=== PATIENT | female | born 1970 | race Caucasian/White ===

== ENCOUNTER 2019-05-15 13:12 | Emergency (ER) | payer MEDICAID, OTHER ==
[2019-05-15] MEDS ORDERED: CHERRY SYRUP 10 ML UDC PO ONE (16:27)
[2019-05-15] MEDS ORDERED: DEXAMETHASONE 10 MG/ML VIAL PO STA (16:27)
[2019-05-15] MEDS ORDERED: IPRATROPIUM/ALBUTEROL 3 ML NEB INH STA (16:27)
--- NOTE | 2019-05-15 16:31 | ED Physician Documentation ---
PD HPI DYSPNEA - Stated complaint Stated Complaint: SOA - Chief complaint Chief Complaint: Neuro - History obtained from History obtained from: Patient - History of Present Illness Timing - onset: How many days ago (4) Timing - onset during: Rest Timing - duration: Days (4) Timing - details: Gradual onset, Still present Inciting event(s): URI Improved by: Inhaler/neb, Sitting up Worsened by: Exertion, Laying flat, Coughing Associated symptoms: Cough, Wheezing Similar symptoms before: Diagnosis (asthma and pneumonia) Recently seen: Not recently seen - Additional information Additional information: 48-year-old female history of asthma has been having to use her inhaler every 4 hours for the past 2 days. She states that she is developed a cough and congestion about 4 days ago she has been having some trouble sleeping at night as she is having to sleep sitting upright or she will have coughing paroxysms. She denies any fever associated with this she has had some clear phlegm brought up. She has had similar symptoms previously was with pneumonia. Review of Systems Constitutional: denies: Fever Eyes: denies: Decreased vision Ears: denies: Ear pain Nose: reports: Rhinorrhea / runny nose, Congestion Throat: denies: Sore throat Cardiac: denies: Chest pain / pressure, Palpitations, Calf pain Respiratory: reports: Dyspnea, Cough, Wheezing. denies: Hemoptysis GI: denies: Abdominal Pain, Nausea, Vomiting : denies: Dysuria PD PAST MEDICAL HISTORY - Past Medical History Cardiovascular: Hypertension Respiratory: Asthma - Past Surgical History Past Surgical History: Yes Ortho: Rotator cuff repair HEENT: Tonsil/Adenoidectomy - Present Medications Home Medications: Ambulatory Orders Medication Instructions Recorded Confirmed amLODIPine [Norvasc] 5 mg PO DAILY 08/22/14 08/22/14 hydroCHLOROthiazide 25 mg PO DAILY 08/22/14 08/22/14 [Hydrochlorothiazide] Albuterol 2.5 mg INH Q4H PRN #30 neb 05/15/19 Amox/Clav 875/125 [Augmentin] 1 each PO Q12H #20 tablet 05/15/19 amLODIPine [Norvasc] 5 mg PO DAILY #30 tablet 05/15/19 predniSONE [Deltasone] 10 mg PO ONCE #26 tablet 05/15/19 - Allergies Allergies/Adverse Reactions: Allergies Allergy/AdvReac Type Severity Reaction Status Date / Time ciprofloxacin [From Cipro] Allergy Dizziness Verified 05/15/19 13:14 ciprofloxacin HCl * Allergy Dizziness Verified 05/15/19 13:14 [From Cipro] - Social History Does the pt smoke?: No Smoking Status: Never smoker Does the pt drink ETOH?: Yes Does the pt have substance abuse?: No - Immunizations Immunizations are current?: Yes PD ED PE NORMAL - Vitals Vital signs reviewed: Yes (Tachycardic and hypertensive) - General General: Alert and oriented X 3, No acute distress, Well developed/nourished - HEENT HEENT: EOMI, Ears normal, Moist mucous membranes, Pharynx benign, Dentition benign - Neck Neck: Supple, no meningeal sign, No bony TTP - Cardiac Cardiac: No murmur, Other (Tachycardic) - Respiratory Respiratory: No respiratory distress, Other (Diminished breath sounds bilaterally without focal rhonchi) - Abdomen Abdomen: Soft, Non tender - Back Back: No CVA TTP, No spinal TTP - Derm Derm: Normal color, Warm and dry, No rash - Extremities Extremities: No deformity, No edema, No calf tenderness / cord - Neuro Neuro: Alert and oriented X 3, head host/hostess 2-12 intact, No motor deficit, No sensory deficit, Normal speech Eye Opening: Spontaneous Motor: Obeys Commands Verbal: Oriented GCS Score: 15 - Psych Psych: Normal mood, Normal affect Results - Vitals Vitals: Vital Signs - 24 hr 05/15/19 05/15/19 13:14 16:40 Temperature 36.5 C Heart Rate 120 H 78 Respiratory 16 18 Rate Blood Pressure 138/95 H O2 Saturation 100 Oxygen O2 Source Room air - Rads (name of study) chest Radiology: Prelim report reviewed (Pression: Bibasilar airspace disease with small bilateral pleural effusions.), EMP read indepedently, See rad report PD MEDICAL DECISION MAKING - ED course Complexity details: reviewed old records, reviewed results, re-evaluated patient, considered differential, d/w patient ED course: 48-year-old female history of hypertension and asthma has developed a cough and congestion with increasing difficulty breathing and she has had pneumonia previously with similar symptoms. Today she does look like she has an infiltrate on her chest x-ray especially in the right lower lobe. She is admin istered a DuoNeb treatment with improvement in her breathing she is administered dexamethasone 10 mg orally and a gram of Rocephin IM. We will placed on to some Augmentin and she is asked for refill of her amlodipine for her hypertension. She does look like she has significant cardiomegaly on her chest x-ray. She is given a prescription for albuterol for her nebulizer machine. Departure - Departure Disposition: Home, Self Care Clinical Impression: Pneumonia Qualifiers: Pneumonia type: due to unspecified organism Laterality: right Lung location: lower lobe of lung Qualified Code(s): J18.9 - Pneumonia, unspecified organism Exacerbation of asthma Qualifiers: Asthma severity: mild Asthma persistence: intermittent Qualified Code(s): J45.21 - Mild intermittent asthma with (acute) exacerbation Condition: Stable Instructions: ED Reactive Airway Disease, ED Pneumonia Adult Follow-Up: [facility] [place] [Provider Group] Prescriptions: Albuterol 2.5 mg INH Q4H PRN #30 neb PRN Reason: Wheezing amLODIPine [Norvasc] 5 mg PO DAILY #30 tablet Amox/Clav 875/125 [Augmentin] 1 each PO Q12H #20 tablet predniSONE [Deltasone] 10 mg PO ONCE #26 tablet Forms: Activity restrictions
[2019-05-15] MEDS ORDERED: cefTRIAXone 1 GM VIAL IM STA (16:48)
[2019-05-15] MEDS ORDERED: LIDOCAINE 1% 2 ML VIAL MC ONE (16:48)
--- NOTE | 2019-05-15 16:55 | XRAY Report ---
Reason: cough soa Procedure Date: 05/15/2019 Accession Number: [id number] / [id number] Procedure: XR - Chest 2 View X-Ray CPT Code: 08950 Final Report FULL RESULT: EXAM: CHEST RADIOGRAPHY EXAM DATE: 05/15/2019 04:40 PM. CLINICAL HISTORY: Cough soa. COMPARISON: None. TECHNIQUE: 2 views. FINDINGS: Lungs/Pleura: Bibasilar opacities with small bilateral pleural effusions. Mediastinum: Heart is enlarged. Pulmonary vasculature is within normal limits. Other: None. IMPRESSION: Bibasilar airspace disease with small bilateral pleural effusions. RADIA
[2019-05-15 17:31] VITALS: BP 138/105
== END 2019-05-15 17:31 | disposition home or self-care (01) ==
LOC: ED 13:12
DX: J18.9 Pneumonia, unspecified organism (principal); J45.21 Mild intermittent asthma with (acute) exacerbation; I11.9 Hypertensive heart disease without heart failure; Z79.899 Other long term (current) drug therapy
CPT/HCPCS: 71046; 94640; 96372; 99284; A9270

== ENCOUNTER 2019-05-22 16:26 | Observation (INO) | payer OTHER ==
--- NOTE | 2019-05-22 17:47 | XRAY Report ---
Reason: PNA, no improvement on antibiotics Procedure Date: 05/22/2019 Accession Number: [id number] / [id number] Procedure: XR - Chest 2 View X-Ray CPT Code: 48776 Final Report FULL RESULT: EXAM: CHEST RADIOGRAPHY EXAM DATE: 05/22/2019 05:16 PM. CLINICAL HISTORY: PNA, no improvement on antibiotics. COMPARISON: CHEST 2 VIEW 05/15/2019 4:32 PM. TECHNIQUE: 2 views. FINDINGS: Lungs/Pleura: Stable mild pulmonary edema and small bilateral pleural effusions. No focal opacities evident. NO pneumothorax. Normal volumes. Mediastinum: There is stable moderate enlargement of cardiomediastinal silhouette. Mild continued pulmonary edema with small bilateral pleural effusions. Other: None. IMPRESSION: stable moderate enlargement of cardiomediastinal silhouette. Mild continued pulmonary edema with small bilateral pleural effusions. RADIA
[2019-05-22 17:48] LABS: BASOPHILS # (AUTO) 0.1 10^3/uL (0.0-0.1); BASOPHILS % (AUTO) 0.4 %; EOSINOPHILS # (AUTO) 0.1 10^3/uL (0.0-0.7); EOSINOPHILS % (AUTO) 0.5 %; HGB - HEMOGLOBIN 13.9 g/dL (12.0-16.0); LYMPHOCYTES # (AUTO) 1.3 10^3/uL (1.5-3.5); LYMPHOCYTES % (AUTO) 10.3 %; MEAN CORPUSCULAR HEMOGLOBIN 32.6 pg (27.0-31.0); MEAN CORPUSCULAR HGB CONC 33.4 g/dL (32.0-36.0); MEAN CORPUSCULAR VOLUME 97.7 fL (81.0-99.0); MEAN PLATELET VOLUME 10.2 fL (7.9-10.8); MONOCYTES # (AUTO) 0.7 10^3/uL (0.0-1.0); MONOCYTES % (AUTO) 5.6 %; NEUTROPHILS # (AUTO) 10.7 10^3/uL (1.5-6.6); NEUTROPHILS % (AUTO) 82.5 %; PLT - PLATELET COUNT 300 10^3/uL (130-450); RED BLOOD COUNT 4.26 10^6/uL (4.20-5.40); RED CELL DISTRIBUTION WIDTH 12.8 % (12.0-15.0); WHITE BLOOD COUNT 12.9 x10^3/uL (4.8-10.8)
[2019-05-22 18:01] LABS: ALBUMIN 3.9 g/dL (3.2-5.5); ALBUMIN/GLOBULIN RATIO 1.9 (1.0-2.2); BILIRUBIN,TOTAL 0.7 mg/dL (0.2-1.0); CALCIUM 8.7 mg/dL (8.5-10.3); CREATININE 0.7 mg/dL (0.4-1.0)
--- NOTE | 2019-05-22 19:14 | ED Physician Documentation ---
History of Present Illness - Stated complaint Stated Complaint: HIGH BP, RAPID BREATHING - DX PN 05/15 - Chief complaint Chief Complaint: Resp - History obtained from History obtained from: Patient - History of Present Illness Timing: How many weeks ago (2) - Additonal information Additional information: 48 year old female with hx of hypertension (not on medication), asthma presents to the emergency department because of ongoing shortness of breath, cough since 05/04/2019. Patient was seen in the ED last wednesday and was diagnosed with pneumonia. She was treated with prednisone and amoxicillin without improvement. CXR at the time showed bibasilar atelectasis with small pleural effusions. She reported of exertional dyspnea, orthopnea santana chest pain with coughing. Patient denies fever or chills. She reports of night sweats/ hot flashes from menopause. Cough was mostly nonproductive. Review of Systems Constitutional: reports: Sweats. denies: Fever Eyes: denies: Loss of vision, Decreased vision Ears: denies: Loss of hearing, Ear pain Nose: denies: Rhinorrhea / runny nose, Foreign Body Cardiac: reports: Palpitations Respiratory: reports: Cough GI: denies: Abdominal Pain, Abdominal Swelling, Nausea, Vomiting Skin: denies: Rash Musculoskeletal: denies: Neck pain, Back pain, Extremity pain Neurologic: denies: Generalized weakness, Focal weakness, Syncope PD PAST MEDICAL HISTORY - Past Medical History Cardiovascular: Hypertension Respiratory: Asthma GI: None HEENT: None Psych: None Musculoskeletal: None Derm: None - Past Surgical History Past Surgical History: Yes Ortho: Rotator cuff repair HEENT: Tonsil/Adenoidectomy - Present Medications Home Medications: Ambulatory Orders Medication Instructions Recorded Confirmed amLODIPine [Norvasc] 5 mg PO DAILY 08/22/14 08/22/14 hydroCHLOROthiazide 25 mg PO DAILY 08/22/14 08/22/14 [Hydrochlorothiazide] Albuterol 2.5 mg INH Q4H PRN #30 neb 05/15/19 Amox/Clav 875/125 [Augmentin] 1 each PO Q12H #20 tablet 05/15/19 amLODIPine [Norvasc] 5 mg PO DAILY #30 tablet 05/15/19 predniSONE [Deltasone] 10 mg PO ONCE #26 tablet 05/15/19 - Allergies Allergies/Adverse Reactions: Allergies Allergy/AdvReac Type Severity Reaction Status Date / Time ciprofloxacin [From Cipro] Allergy Dizziness Verified 05/15/19 13:14 ciprofloxacin HCl * Allergy Dizziness Verified 05/15/19 13:14 [From Cipro] peanut Allergy Anaphylaxis Verified 05/23/19 01:31 - Social History Does the pt smoke?: No Smoking Status: Never smoker Does the pt drink ETOH?: Yes Does the pt have substance abuse?: No - Immunizations Immunizations are current?: Yes PD ED PE NORMAL - General General: Alert and oriented X 3 - HEENT HEENT: Atraumatic - Neck Neck: Supple, no meningeal sign - Cardiac Cardiac: Other (tahcyardiac) - Respiratory Respiratory: Other (rhonchi at the bases) - Abdomen Abdomen: Normal bowel sounds - Back Back: No CVA TTP - Extremities Extremities: No deformity - Neuro Neuro: Alert and oriented X 3, glove cuffer 2-12 intact, No motor deficit, No sensory deficit, Normal speech Results - Vitals Vitals: Vital Signs - 24 hr 05/22/19 05/22/19 16:55 21:21 Temperature 37 C Heart Rate 127 H 110 H Respiratory 18 18 Rate Blood Pressure 137/114 H 132/94 H O2 Saturation 97 98 Oxygen O2 Source Room air - EKG (time done) 1914 Rhythm: Sinus tachycardia (119) [place]: Normal QRS: Normal Ischemia: Non specific changes Compare to prior EKG: Old EKG unavailable, Other (LVH noted.) - Labs Labs: Laboratory Tests 05/22/19 05/22/19 05/22/19 17:45 17:45 19:06 WBC 12.9 H RBC 4.26 Hgb 13.9 Hct 41.6 MCV 97.7 MCH 32.6 H MCHC 33.4 RDW 12.8 Plt Count 300 MPV 10.2 Neut # (Auto) 10.7 H Lymph # (Auto) 1.3 L [place] # (Auto) 0.7 Eos # (Auto) 0.1 Baso # (Auto) 0.1 Absolute Nucleated RBC 0.00 Nucleated RBC % 0.0 Sodium 132 L Potassium 3.5 Chloride 99 L Carbon Dioxide 23 Anion Gap 10.0 BUN 8 Creatinine 0.7 Estimated GFR (MDRD) 89 Glucose 121 H Calcium 8.7 Total Bilirubin 0.7 AST 36 ALT 49 Alkaline Phosphatase 34 L Troponin I High Sens 50.3 H* B-Natriuretic Peptide Total Protein 6.0 L Albumin 3.9 Globulin 2.1 Albumin/Globulin Ratio 1.9 Lipase 28 HCG, Quant 05/22/19 05/22/19 19:06 19:06 WBC RBC Hgb Hct MCV MCH MCHC RDW Plt Count MPV Neut # (Auto) Lymph # (Auto) [place] # (Auto) Eos # (Auto) Baso # (Auto) Absolute Nucleated RBC Nucleated RBC % Sodium Potassium Chloride Carbon Dioxide Anion Gap BUN Creatinine Estimated GFR (MDRD) Glucose Calcium Total Bilirubin AST ALT Alkaline Phosphatase Troponin I High Sens B-Natriuretic Peptide 1427 H Total Protein Albumin Globulin Albumin/Globulin Ratio Lipase HCG, Quant 4.22 PD MEDICAL DECISION MAKING - ED course Complexity details: d/w patient, d/w decorating consultant ED course: 48 YEAR OLD FEMALE PRESENTS TO THE EMERGENCY DEPARTMENT BECAUSE OF 2 1/2 WEEKS OF NONPRODUCTIVE COUGH, SHORTNESS OF BREATH, EXERTIONAL DYSPNEA AND ORTHOPNEA. PATIENT WAS NOTED TO BE TACHYCARDIAC AND WORK UP WAS CONSISTENT WITH ACUTE CONGESTIVE HEART FAILURE. PATIENT WAS NOT HYPOXEMIC AT THIS TIME. SHE WAS MILDLY TACHYPNEIC. [address] HERNANDEZ, HOSPITALIST WHO RECOMMENDED TO GIVE IV LASIX IN THE EMERGENCY DEPARTMENT AND RECHECK. PATIENT WILL BE GIVEN GIVEN 40 MG IV LASIX AND I WILL RECHECK ON THE PATIENT. AFTER IV LASIX, PATIENT HAD GOOD URINE OUTPUT BUT SHE REMAINED TACHYCARDIAC ON AMBULATION AND WITH DIZZINESS WELL. CT CHEST DID NOT SHOW PULMONARY EMBOLISM. THERE WAS BILATERAL PLEURAL EFFUSION, RIGHT GREATER THAN LEFT. CASE WAS DISCUSSED WITH DR. HERNANDEZ AGAIN AND SHE HAS ACCEPTED THE PATIENT FOR OBSERVATION ADMISSION. Departure - Departure Disposition: ED Place in Observation Clinical Impression: New onset of congestive heart failure Condition: Serious Discharge Date/Time: 05/22/19 23:47
[2019-05-22] MEDS ORDERED: FUROSEMIDE 40 MG/4 ML VIAL IVP STA (19:54)
[2019-05-22] MEDS ORDERED: IOVERSOL 320 100 ML VIAL IVP ONE ×2 (21:34→22:08)
[2019-05-22] MEDS ORDERED: IBUPROFEN 600 MG TABLET PO STA (21:57)
--- NOTE | 2019-05-22 22:50 | CT Report ---
Reason: shortness of breath, tachycardia Procedure Date: 05/22/2019 Accession Number: [id number] / [id number] Procedure: CT - ANGIO CHEST W/WO CPT Code: Final Report FULL RESULT: EXAM: CT ANGIOGRAM CHEST EXAM DATE: 05/22/2019 10:12 PM. CLINICAL HISTORY: Shortness of breath, tachycardia. COMPARISON: None. TECHNIQUE: Routine helical imaging was performed through the chest in the pulmonary arterial phase. IV Contrast: OPTIRAY 320. Reconstructions: Coronal 3-D MIP reconstructions. Sagittal and coronal. In accordance with CT protocol optimization, one or more of the following dose reduction techniques were utilized for this exam: automated exposure control, adjustment of mA and/or KV based on patient size, or use of iterative reconstructive technique. FINDINGS: Pulmonary Arteries: Diagnostic quality: Adequate through the segmental arteries. No evidence for acute or chronic pulmonary emboli. RV/LV is within normal limits. There is no interventricular septal bowing. There is no reflux of contrast material in the IVC. Lungs/Pleura: There are no pneumonic infiltrates. There is an area of atelectasis at the right lung base and an area of atelectasis at the left lung base partially contiguous with the heart. There is a moderate to large right pleural effusion and a small left pleural effusion. Mediastinum: The heart is globally enlarged. Thoracic Aorta: Unremarkable. Upper Abdomen: Unremarkable. Other: None. IMPRESSION: 1. No evidence for pulmonary emboli. 2. Cardiomegaly. 3. Bilateral pleural effusions right greater than left. 4. Atelectatic changes at the lung bases. RADIA
[2019-05-22] MEDS ORDERED: ACETAMINOPHEN 325 MG TABLET PO PRN (23:19)
[2019-05-22] MEDS ORDERED: oxyCODONE 5 MG TABLET PO PRN (23:19)
[2019-05-22] MEDS ORDERED: PROCHLORPERAZINE 10 MG/2 ML VIAL IVP PRN (23:19)
[2019-05-22] MEDS ORDERED: ONDANSETRON ODT 4 MG TABLET TL PRN (23:19)
[2019-05-22] MEDS ORDERED: SODIUM CHLORIDE FLUSH 0.9% 10 ML SYRINGE IVP PRN (23:19)
[2019-05-22] MEDS ORDERED: ONDANSETRON 4 MG/2 ML VIAL IVP PRN (23:19)
--- NOTE | 2019-05-22 23:40 | HISTORY & PHYSICAL EXAMINATION ---
Chief Complaint - Chief Complaint Chief Complaint: cough and sob History of Present Illness - Admitted From Admitted From:: Home/ER - History Obtained From Records Reviewed: [address] History obtained from: patient and Dr. Murray Exam Limitations: none - History of Present Illness HPI Comment/Other: This is a 48-year-old female who has a history of hypertension and asthma that was recently seen May 15 for what was thought to be asthma exacerbation. Sometime in March of this year she started feeling like there was a "hitch" in her chest. At rest, while doing minimal sedentary activity, she would have sudden shortness of breath that would be fleeting and last for moment. It would cause her to cough and then would go away. She denied chest pain with this, fever, chills. Sweats. She is gradually increased her weight over the last couple of years and that she stopped going to a gym, and was drinking up to 4 glasses of wine a night after divorce from her . She is felt exhausted, and way less able to have energy since March. She then started having shortness of breath approximately May 11 and was gradual in onset, and accompanied by orthopnea and wheezing. She felt like her chest was congested but had no antecedent fever. She did have a runny nose and some congestion.She has a history of asthma. On a bad week she will use her inhaler at night maybe 3 times a week. And that is only during allergy season. When it is not allergy season, she can go months without using her inhaler. On examination she had a negative lung exam. Afebrile. Tachycardic to 120. O2 sat 100%. She looks like she had an infiltrate on right lower lobe on chest x-ray. Was treated with dexamethasone and Rocephin. She also had significant cardiomegaly on her chest x-ray. She was given a prescription for albuterol, amlodipine, Augmentin and prednisone. She returned to the emergency room tonight because she was still short of breath, and still coughing. She continues to have shortness of breath anytime she tries to do anything simple such as getting up to go to the bathroom or walk across her living room. She cannot lay flat because she is short of breath. And the cough is so spasmatic start a rib cage to hurt. She does not have any fever, chills, sore throat, abdominal pain. She has no jaw pain. Left arm pain. She feels like her heart is pounding very hard with this. Temperature is 37, heart rate is 127, respirations 18 and unlabored, blood pressure 137/114 and she is 97% on room air. She has rhonchi in her bases, continues to be tachycardic. No edema. White cell count is 12.9. Troponin is 50.3. BNP is 1427. Her chest x-ray has stable moderate enlargement of cardiomediastinal silhouette. Some pulmonary edema with small bilateral pleural effusion. CT pulmonary angiogram was done to make sure there is no PE and she has no pneumonic infiltrates. Atelectasis right lung base and area of atelectasis in the left lung base. Moderate to large right pleural effusion and a small left pleural effusion. The heart is globally enlarged. She received Lasix 40 mg IV push in the emergency room. It did help somewhat with her shortness of breath but she continues to be tachycardic. She is now placed in observation for continued diuresis. An echocardiogram in the morning. She will have another set of cardiac enzymes because they are elevated. History - Past Medical History Cardiovascular: reports: Hypertension (Long-term history of high blood pressure. 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 She has high blood pressure, asthma, and was recently diagnosed with congestive heart failure. Dad at age 58 of heart attack, he also hypertension. One sibling is healthy. 2 children are completely healthy Living arrangement: At home Living Situation: Alone Social History Notes: She tried smoking for about a week her first year in college. It did not take. She has not smoked cannabis, or snorted cocaine/methamphetamines. No history of recreational substance abuse. She is drinking 4 glasses of wine a day and stopped doing that in March. She has no history of alcohol withdrawal. 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 She is . Lives in her own home. - Substance History Abuse: Recurrent use of substance despite neg consequences: Alcohol - POLST Patient has POLST: Yes POLST Status: Full Code Meds/Allgy - Home Medications Home Medications: Ambulatory Orders Medication Instructions Recorded Confirmed amLODIPine [Norvasc] 5 mg PO DAILY 08/22/14 08/22/14 hydroCHLOROthiazide 25 mg PO DAILY 08/22/14 08/22/14 [Hydrochlorothiazide] Albuterol 2.5 mg INH Q4H PRN #30 neb 05/15/19 Amox/Clav 875/125 [Augmentin] 1 each PO Q12H #20 tablet 05/15/19 amLODIPine [Norvasc] 5 mg PO DAILY #30 tablet 05/15/19 predniSONE [Deltasone] 10 mg PO ONCE #26 tablet 05/15/19 - Allergies Allergies/Adverse Reactions: Allergies Allergy/AdvReac Type Severity Reaction Status Date / Time ciprofloxacin [From Cipro] Allergy Dizziness Verified 05/15/19 13:14 ciprofloxacin HCl * Allergy Dizziness Verified 05/15/19 13:14 [From Cipro] Review of Systems - Constitutional Constitutional: reports: Fatigue, Night sweats (In association with menopause). denies: Fever, Chills, Malaise, Poor appetite, Diaphoresis - Eyes Eyes: reports: Corrective lenses. denies: Pain, Irritation, Amaurosis, Blurred vision - Ears, Nose & Throat Ears, Nose & Throat: denies: Ear pain, Hearing loss, Hearing aids, Sore throat, Hoarseness - Cardiovascular Cariovascular: reports: Irregular heart rate, Palpitations, Exertional dyspnea, Decr. exercise tolerance - Respiratory Respiratory: reports: Cough, Wheezing, SOB at rest, SOB with exertion - Gastrointestinal Gastrointestinal: denies: Abdominal pain, Abdominal distention, Constipation, Diarrhea, Change in bowel habits - Genitourinary Genitourinary: denies: Dysuria, Frequency, Urgency, Hematuria, Incontinence - Musculoskeletal Musculoskeletal: denies: Muscle pain, Back pain, Muscle aches, Stiffness, Gout, Joint pain - Integumentary Integumentary: denies: Rash, Pruritis, Lesions, Dryness - Neurological Neurological: denies: General weakness, Focal weakness, Headache, Dizziness, Numbness, Memory problems, Pre-existing deficit, Abnormal gait - Psychiatric Psychiatric: denies: Depression, Anxiety, Suicidal - Endocrine Endocrine: denies: Polyuria, Polydypsia, Polyphagia - Hematologic/Lymphatic Hematologic/Lymphatic: denies: Anemia, Bruising Prior Level of Functionality: Independent with regards to activities of daily living. She pays the bills, does her housework, drives a car, has a full-time job. Exam - Vital Signs Reviewed Vital Signs: Yes Vital Signs: Vital Signs x48h Temp Pulse Resp BP Pulse Ox 05/22/19 21:21 110 H 18 132/94 H 98 05/22/19 16:55 37 C 127 H 18 137/114 H 97 - Physical Exam General Appearance: positive: No acute distress, Alert, Other (Sitting upright, able to get out of wheelchair into bed without increased respiratory effort or severe tachypnea) Eyes Bilateral: positive: PERRL, EOMI ENT: positive: Pharynx nml, Other (Wearing eyeglasses.) Neck: positive: No JVD. negative: Stiff neck, Carotid bruit Respiratory: positive: Chest non-tender, Other (Dull right lung base with faint egophony at the bases). negative: Rales, Rhonchi Cardiovascular: positive: Regular rate & rhythm, Tachycardia. negative: Gallop/S4, Friction rub Abdomen: positive: Non-tender, No organomegaly, Nml bowel sounds, No distention Skin: positive: Warm, Dry Extremities: positive: Non-tender, No pedal edema Neurologic/Psychiatric: positive: Oriented x3, CN's nml (2-12), Motor nml Conclusion/Plan - Problem List (1) New onset of congestive heart failure Conclusion/Plan: This is in association with a viral illness. She may have a viral induced cardiomyopathy, or new ischemic cardiomyopathy but she does not have the risk factors for CAD. Troponin is elevated but this may be due to demand ischemia from tachycardia this been persistent for a week according to her vitals.She may also have hypertensive heart disease since her high blood pressure is untreated. The final cause on the differential for her CHF could be alcholic cardiomyopathy. She has not responded to diuresis in the emergency room, and she continues to have tachycardia. Plan: Observation stay Echocardiogram in the morning Start Coreg to help with the tachycardia Continue Lasix IV (2) Pleural effusion Conclusion/Plan: I would anticipate this is due to her congestive heart failure. However a diagnostic thoracentesis may be in order if she does not respond to diuretics. (3) Elevated troponin Conclusion/Plan: Repeated in 4 to 6 hours and tomorrow a.m. EKG without acute ischemic changes. Most likely due to demand ischemia from continued tachycardia. (4) Hypertension Conclusion/Plan: At this time amlodipine will be substituted by DELPHINE inhibitor. Qualifiers: Hypertension type: essential hypertension Qualified Code(s): I10 - Essential (primary) hypertension - Lab Results Lab results reviewed: Yes Fish Bones: 05/22/19 17:45 05/22/19 17:45 - Diagnostic Imaging Results Diagnostic Imaging Results: positive: Final report reviewed Core Measures - Anticipated LOS I expect patient to be DC'd or transferred within 96 hours.: Yes - DVT/VTE - Prophylaxis VTE/DVT Device ordered at admit?: Yes
[2019-05-23] MEDS: SODIUM CHLORIDE FLUSH 0.9% 10 ML SYRINGE IVP SCH ×3 (00:20→18:08)
[2019-05-23] MEDS: carvediloL 3.125 MG TABLET PO SCH ×3 (00:20→21:43)
[2019-05-23 05:00] LABS: CALCIUM 8.2 mg/dL (8.5-10.3); CREATININE 0.5 mg/dL (0.4-1.0); MAGNESIUM 1.9 mg/dL (1.7-2.8)
[2019-05-23] MEDS ORDERED: ATORVASTATIN 40 MG TABLET PO STA (05:21)
[2019-05-23] MEDS ORDERED: ENOXAPARIN 80 MG/0.8 ML SYRINGE SUBQ STA (05:24)
[2019-05-23] MEDS: FUROSEMIDE 40 MG/4 ML VIAL IVP SCH ×2 (06:13→14:51)
[2019-05-23] MEDS: ASPIRIN EC 325 MG TABLET PO SCH ×2 (06:14→08:16)
[2019-05-23] MEDS ORDERED: POTASSIUM CHLORIDE 20 MEQ TABLET PO ONE (09:00)
[2019-05-23] MEDS: ENALAPRIL 5 MG TABLET PO SCH (12:19)
--- NOTE | 2019-05-23 15:48 | Discharge Plan ---
Discharge Plan Problem Reviewed?: Yes Disposition: 02 Transfer Acute Care Hosp Condition: Serious Instruction Topics: Heart Failure, Heart Failure Warning Signs, Heart Failure Tracking Weight, Heart Failure Being Active, Heart Valves, Heart Failure Helpful Procedures, Heart Failure Coping, Heart Failure Diet Changes, Heart Failure Helpful Meds, Heart Failure Congestive Ch No Smoking: If you smoke, Please STOP! Call for help.
--- NOTE | 2019-05-23 15:48 | DISCHARGE SUMMARY ---
Discharge Summary Admit Date: 05/22/19 Discharge Date: 05/24/19 Discharging Provider: Dr Kate Newby Primary Care Provider: None Code Status: Attempt Resuscitation Condition at Discharge: Fair Discharge Disposition: Transfer Acute Care Hosp Discharge [facility] Name: [facility] - DIAGNOSES Admission Diagnoses: (1) New onset of congestive heart failure (2) Pleural effusion (3) Elevated troponin (4) Hypertension Discharge Diagnoses with Status of Each Condition: See below - HPI History of Present Illness: From the admission H&P of Dr. Neyda Baker: This is a 48-year-old female who has a history of hypertension and asthma that was recently seen May 15 for what was thought to be asthma exacerbation. Sometime in March of this year she started feeling like there was a "hitch" in her chest. At rest, while doing minimal sedentary activity, she would have sudden shortness of breath that would be fleeting and last for moment. It would cause her to cough and then would go away. She denied chest pain with this, fever, chills, or sweats. She is gradually increased her weight over the last couple of years and that she stopped going to a gym, and was drinking up to 4 glasses of wine a night after divorce from her . She has felt exhausted, and way less able to have energy since March. She then started having shortness of breath approximately May 11 and was gradual in onset, and accompanied by orthopnea and wheezing. She felt like her chest was congested but had no antecedent fever. She did have a runny nose and some congestion. She has a history of asthma. On a bad week she will use her inhaler at night maybe 3 times a week. And that is only during allergy season. When it is not allergy season, she can go months without using her inhaler. On examination she had a negative lung exam last week. Afebrile. Tachycardic to 120. O2 sat 100%. She looks like she had an infiltrate on right lower lobe on chest x-ray. Was treated with dexamethasone and Rocephin. She also had significant cardiomegaly on her chest x-ray. She was given a prescription for albuterol, amlodipine, Augmentin and prednisone, which she too and the [id number] caused worse leg swelling and abdominal distension. She returned to the emergency room tonight because she was still short of breath, and still coughing. She continues to have shortness of breath anytime she tries to do anything simple such as getting up to go to the bathroom or walk across her living room. She cannot lay flat because she is short of breath. And the cough is so spasmatic start a rib cage to hurt. She does not have any fever, chills, sore throat, abdominal pain. She has no jaw pain or left arm pain. She feels like her heart is pounding very hard with this. Temperature is 37, heart rate is 127, respirations 18 and unlabored, blood pressure 137/114 and saturation is 97% on room air. She has rhonchi in her bases, continues to be tachycardic. No leg edema. White cell count is 12.9. Troponin is 50.3. BNP is 1427. Her chest x-ray has continued moderate enlargement of cardiac silhouette, pulmonary edema with small bilateral pleural effusion. CT pulmonary angiogram was done to make sure there is no PE and she has none and no pneumonic infiltrates. Atelectasis right lung base and area of atelectasis in the left lung base were seen and a moderate-large right pleural effusion and a small left pleural effusion. The heart is globally enlarged on CT. She received Lasix 40 mg IV push in the emergency room. It did help somewhat with her shortness of breath but she continues to be tachycardic. She is now placed in Observation for continued diuresis. An Echocardiogram in the morning is planned. She will have another set of cardiac enzymes because they are elevated. - HOSPITAL COURSE Hospital Course: (1) New onset of congestive heart failure She was placed in Observation on telemetry. She was started on B-arlette Coreg for rate control and to treat presumed systolic heart failure. The iv Lasix was continued, which gave her about a 3L negative fluid balance, and her abdominal distension and orthopnea improved. After the Echo was done and showed a very dilated LV with LVEF of 25-30%, Spironolactone and DELPHINE were added in a staggered fashion due to her "soft" BP. It was learned that she has 12 immediate family members with CAD or CHF or sudden cardiac . I called her [employer] requesting a transfer for aggressive cardiac management with a coronary angiogram and medication adjustments and she was approved for transfer to [facility]. (2) Acute systolic heart failure Echo showed a very dilated LV with LVEF of 25-30%, and moderate-severe mitral and tricuspid regurgitation and severely dilated left at right atria, suggesting progressive systolic failure. She may have a viral-induced cardiomyopathy, or new ischemic cardiomyopathy with Troponin elevations (see below). She may also have hypertensive heart disease since her high blood pressure was untreated for at least a year. The final cause on the differential for her CHF could be alcoholic cardiomyopathy. (3) Pleural effusion This was felt to be due to her congestive heart failure. We had no Interventi onal Radiologist to perform a diagnostic thoracentesis. (4) Elevated troponin The high sensitivity troponins were rising (50>> 54>> 75>> 53) and may be a sign of her CHF, or related to demand ischemia from the tachycardia, and CAD cannot be ruled out. This was the reason for requesting a transfer for a coronary angio. (5) Hypokalemia Related to aggressive diuresis, most likely. Potassium was replaced. (6) Hx of hypertension She had not been on Amlodipine or HCTZ for 1-2 years. Her BP here was "soft" on new cardiac meds. (7) Hx of asthma Her inhaler was ordered for prn use. - ALLERGIES Allergies/Adverse Reactions: Allergies Allergy/AdvReac Type Severity Reaction Status Date / Time ciprofloxacin [From Cipro] Allergy Dizziness Verified 05/15/19 13:14 ciprofloxacin HCl * Allergy Dizziness Verified 05/15/19 13:14 [From Cipro] peanut Allergy Anaphylaxis Verified 05/23/19 01:31 - MEDICATIONS Home Medications: Ambulatory Orders Medication Instructions Recorded Confirmed amLODIPine [Norvasc] 5 mg PO DAILY 08/22/14 08/22/14 hydroCHLOROthiazide 25 mg PO DAILY 08/22/14 08/22/14 [Hydrochlorothiazide] Albuterol 2.5 mg INH Q4H PRN #30 neb 05/15/19 Amox/Clav 875/125 [Augmentin] 1 each PO Q12H #20 tablet 05/15/19 amLODIPine [Norvasc] 5 mg PO DAILY #30 tablet 05/15/19 predniSONE [Deltasone] 10 mg PO ONCE #26 tablet 05/15/19 - PHYSICAL EXAM AT DISCHARGE General Appearance: positive: No acute distress, Alert Eyes Bilateral: positive: Normal inspection, EOMI ENT: positive: ENT inspection nml, No signs of dehydration Neck: positive: Nml inspection, No JVD Respiratory: positive: No respiratory distress, Other (Diominished breath sounds at bases, no rales) Cardiovascular: positive: Regular rate & rhythm, Tachycardia (Distant heart sounds) Abdomen: positive: Non-tender, Nml bowel sounds, No distention Skin: positive: Color nml Extremities: positive: No pedal edema Neurologic/Psychiatric: positive: Oriented x3, Motor nml - LABS Result Diagrams: 05/22/19 17:45 05/24/19 05:15 - DIAGNOSTIC IMAGING Diagnostic Imaging Results: Final report reviewed - FOLLOW UP Follow Up: She has no PCP currently (her prior PCP, Aline Trejo, is not accepting new patients, according to the patient). - TIME SPENT Time Spent in Discharge (Minutes): 60
--- NOTE | 2019-05-23 16:44 | PHARMACY PROGRESS NOTE ---
- Best Possible Medication History Admit Date and Time: 05/22/19 0670 Processed by: Pharmacy Medication History completed: In progress (Locked out of screen to update medication list - fixing issue in progress) As the person ultimately responsible for medication therapy, providers are able to order a medication from an existing home medication list in [facility] via the "Reconcile Routine" prior to Confirmation of that medication by applications support specialist. Such practice is discouraged except when the physician, in their clinical judgment, deems that a medical need exists for a medication without regard to previous use.
[2019-05-23] MEDS ORDERED: ALBUTEROL NEB 2.5 MG/3 ML INH PRN (17:42)
[2019-05-24] MEDS: SODIUM CHLORIDE FLUSH 0.9% 10 ML SYRINGE IVP SCH ×2 (01:15→07:44)
[2019-05-24] MEDS: FUROSEMIDE 40 MG/4 ML VIAL IVP SCH (05:26)
[2019-05-24 05:28] LABS: CALCIUM 8.2 mg/dL (8.5-10.3); CREATININE 0.7 mg/dL (0.4-1.0)
--- NOTE | 2019-05-24 07:37 | PROVIDER PROGRESS NOTE ---
Assessment/Plan - Problem List (1) New onset of congestive heart failure Assessment/Plan: She was started on Coreg for rate control, and iv Lasix was continued, which has given her about a (-)1L fluid balance and her ankle edema and abdominal distension and orthopnea improved. An Echo was just done that shows a very dilated LV (LVIDd of 7.8) with LVEF of 29%. Spironolactone and DELPHINE will be added in a staggered fashion due to her "soft" BP. (2) Acute systolic heart failure Assessment/Plan: An Echo was just done that shows a very dilated LV (LVIDd of 7.8) with LVEF of 29%. She may have a viral induced cardiomyopathy, or new ischemic cardiomyopathy with Troponin elevations. She may also have hypertensive heart disease since her high blood pressure was untreated for at least a year. The final cause on the differential for her CHF could be alcoholic cardiomyopathy. Plan for transfer for aggressive cardiology management (cor angio, etc), since today she reported to me that 12 of her immediate family members have some type of cardiac and/or coronary disease (her mother just texted her that information). I will call [employer] to get approval for transfer and an accepting facility. (3) Elevated troponin Assessment/Plan: The high sensitivity troponins are rising and may be a sign of her CHF or re lated to demand ischemia from the tachycardia. Therefor CAD cannot be ruled out. Will reach out to her [employer] for a transfer for a coronary angio. Will recheck hs-troponins until the climb in troponin reverses. Will consider starting daily aspirin and empiric statin. (4) Pleural effusion Assessment/Plan: Related to her volume overload. Continue with diuresis and CHF management as above. (5) Hypokalemia Assessment/Plan: Related to aggressive diuresis, most likely. Replace and follow labs. (6) Hx of essential hypertension Assessment/Plan: She was not on her Amlodipine or HCTZ for 1 to 2 years, by her report. Currently her blood pressure is "soft" on all her new cardiac medications for heart failure. (7) History of asthma Assessment/Plan: Will continue her inhaler prn - Current Meds Current Meds: Current Medications Generic Name Dose Route Start Last Admin Trade Name Freq PRN Reason Stop Dose Admin Aspirin 325 mg 05/23/19 05:21 02/25/20 08:16 Ecotrin PO Not Given DAILY CRISTOFER Carvedilol 6.25 mg 05/22/19 23:45 05/23/19 21:43 Coreg PO 6.25 mg BID CRISTOFER Administration Enalapril Maleate 2.5 mg 05/23/19 12:00 05/23/19 12:19 Vasotec PO 2.5 mg DAILY CRISTOFER Administration Furosemide 40 mg 05/23/19 06:00 05/24/19 05:26 Lasix Inj 40 Mg Vial IVP 40 mg BIDDIURETIC CRISTOFER Administration Sodium Chloride 10 ml 05/22/19 23:19 05/24/19 05:27 Normal Saline Flush 0.9% IVP 10 ml PRN PRN Administration NEEDED PER PROVIDER ORDERS Sodium Chloride 10 ml 05/23/19 01:00 05/24/19 01:15 Normal Saline Flush 0.9% IVP Not Given 0100,0900,1700 CRISTOFER - Lab Result Fish Bone Diagrams: 05/22/19 17:45 05/24/19 05:15 - Additional Planning My Orders: My Active Orders 05/23/19 12:00 Enalapril [Vasotec] 2.5 mg PO DAILY 05/23/19 15:47 Discharge [RC] .ONCE Initiate Discharge Checklist [RC] .ONCE 05/23/19 17:42 Albuterol 2.5 mg INH Q4H PRN 05/23/19 17:46 Nebulizer/MDI Tx. [RC] QID Resp Teach Nebulizer/MDI [RC] .ONCE 05/24/19 09:00 Spironolactone [Aldactone] 25 mg PO DAILY Subjective - Subjective Patient Reports: Feeling Better (Less abdominal distention, no ankle edema, no orthopnea. Still has dry nonproductive cough. Still gets dyspneic in walking across the room.), Cough Objective Vital Signs: Vital Signs - 24 hr 05/23/19 05/23/19 05/23/19 15:29 15:53 20:47 Temperature 36.5 C Heart Rate [ 105 H Brachial] Heart Rate [ 101 H 95 Monitoring electrodes] Respiratory 20 Rate Blood Pressure 113/76 95/69 [Left Brachial artery] O2 Saturation 95 05/23/19 05/23/19 05/24/19 21:00 23:42 05:09 Temperature 36.5 C 36.4 C L 36.3 C L Heart Rate [ 96 83 95 Brachial] Heart Rate [ 95 Monitoring electrodes] Respiratory 22 18 16 Rate Blood Pressure 101/75 92/63 100/75 [Left Brachial artery] O2 Saturation 98 93 97 Oxygen O2 Source Room air I&O (Last 24 Hrs): Intake and Output Totals x24h 05/22/19 05/23/19 05/24/19 23:59 23:59 23:59 Intake Total 2830 400 Output Total 4270 1250 Balance -1440 -850 General: Alert, Oriented x3 HEENT: EOMI, Mucous membr. moist/pink Neck: Supple, No JVD Neuro: Alert, Non Focal Cardiovascular: Regular rate, No murmurs, Other (Tachycardiac) Respiratory: No respiratory distress, Other (Diminished at both bases, no rales heard) Abdomen: Normal bowel sounds, Soft Extremities: No edema - Results Results: Laboratory Results WBC 12.9 x10^3/uL (4.8-10.8) H 05/22/19 17:45 RBC 4.26 10^6/uL (4.20-5.40) 05/22/19 17:45 Hgb 13.9 g/dL (12.0-16.0) 05/22/19 17:45 Hct 41.6 % (37.0-47.0) 05/22/19 17:45 MCV 97.7 fL (81.0-99.0) 05/22/19 17:45 MCH 32.6 pg (27.0-31.0) H 05/22/19 17:45 MCHC 33.4 g/dL (32.0-36.0) 05/22/19 17:45 RDW 12.8 % (12.0-15.0) 05/22/19 17:45 Plt Count 300 10^3/uL (130-450) 05/22/19 17:45 MPV 10.2 fL (7.9-10.8) 05/22/19 17:45 Neut # (Auto) 10.7 10^3/uL (1.5-6.6) H 05/22/19 17:45 Lymph # (Auto) 1.3 10^3/uL (1.5-3.5) L 05/22/19 17:45 Sac # (Auto) 0.7 10^3/uL (0.0-1.0) 05/22/19 17:45 Eos # (Auto) 0.1 10^3/uL (0.0-0.7) 05/22/19 17:45 Baso # (Auto) 0.1 10^3/uL (0.0-0.1) 05/22/19 17:45 Absolute Nucleated RBC 0.00 x10^3/uL 05/22/19 17:45 Nucleated RBC % 0.0 /100WBC 05/22/19 17:45 Sodium 131 mmol/L (135-145) L 05/24/19 05:15 Potassium 3.3 mmol/L (3.5-5.0) L 05/24/19 05:15 Chloride 96 mmol/L (101-111) L 05/24/19 05:15 Carbon Dioxide 25 mmol/L (21-32) 05/24/19 05:15 Anion Gap 10.0 (6-13) 05/24/19 05:15 BUN 6 mg/dL (6-20) 05/24/19 05:15 Creatinine 0.7 mg/dL (0.4-1.0) 05/24/19 05:15 Estimated GFR (MDRD) 89 (>89) 05/24/19 05:15 Glucose 96 mg/dL (70-100) 05/24/19 05:15 Calcium 8.2 mg/dL (8.5-10.3) L 05/24/19 05:15 Magnesium 1.9 mg/dL (1.7-2.8) 05/23/19 04:46 Total Bilirubin 0.7 mg/dL (0.2-1.0) 05/22/19 17:45 AST 36 IU/L (10-42) 05/22/19 17:45 ALT 49 IU/L (10-60) 05/22/19 17:45 Alkaline Phosphatase 34 IU/L (42-121) L 05/22/19 17:45 Troponin I High Sens 53.9 ng/L (2.3-14.8) H* 05/23/19 11:12 B-Natriuretic Peptide 1289 pg/mL (5-100) H 05/23/19 04:46 Total Protein 6.0 g/dL (6.7-8.2) L 05/22/19 17:45 Albumin 3.9 g/dL (3.2-5.5) 05/22/19 17:45 Globulin 2.1 g/dL (2.1-4.2) 05/22/19 17:45 Albumin/Globulin Ratio 1.9 (1.0-2.2) 05/22/19 17:45 Lipase 28 U/L (22-51) 05/22/19 17:45 TSH 5.04 uIU/mL (0.34-5.60) 05/23/19 04:46 HCG, Quant 4.22 mIU/mL 05/22/19 19:06
[2019-05-24 07:41] VITALS: BP 102/65
[2019-05-24] MEDS: ASPIRIN EC 325 MG TABLET PO SCH (07:42)
[2019-05-24] MEDS: carvediloL 3.125 MG TABLET PO SCH (07:42)
[2019-05-24] MEDS: ENALAPRIL 5 MG TABLET PO SCH (07:43)
[2019-05-24] MEDS ORDERED: SPIRONOLACTONE 25 MG TABLET PO SCH (09:00)
== END 2019-05-24 08:45 | disposition short-term general hospital (02) ==
LOC: ED 16:26 → MS2 23:19 → MS3 23:35
PROVIDERS: ADMIT Specialist; ATTEND Internal Medicine
DX: I11.0 Hypertensive heart disease with heart failure (principal); I50.21 Acute systolic (congestive) heart failure; I08.1 Rheumatic disorders of both mitral and tricuspid valves; E87.6 Hypokalemia; J45.909 Unspecified asthma, uncomplicated; R79.89 Other specified abnormal findings of blood chemistry
CPT/HCPCS: 36415; 71046; 71275; 80048; 80053; 83690; 83735; 83880; 84443; 84484; 84702; 85025; 93005; 93306; 96372; 96374; 96376; 99284; 99285; A9270; G0378; J1650; Q9967

== ENCOUNTER 2019-06-14 11:16 | Outpatient (CLI) | payer OTHER ==
[2019-06-14 17:00] LABS: CALCIUM 9.2 mg/dL (8.5-10.3); CREATININE 0.8 mg/dL (0.4-1.0)
== END 2019-06-14 11:17 | disposition home or self-care (01) ==
LOC: LAB.S 11:16
PROVIDERS: ATTEND Internal Medicine Cardiovascular Disease
DX: I50.20 Unspecified systolic (congestive) heart failure (principal)
CPT/HCPCS: 36415; 80048

== ENCOUNTER 2019-07-05 11:38 | Outpatient (CLI) | payer OTHER ==
[2019-07-05 16:47] LABS: CALCIUM 9.3 mg/dL (8.5-10.3); CREATININE 0.8 mg/dL (0.4-1.0)
== END 2019-07-05 23:59 | disposition home or self-care (01) ==
LOC: LAB.WCP 11:38
PROVIDERS: ATTEND Internal Medicine Cardiovascular Disease
DX: I50.20 Unspecified systolic (congestive) heart failure (principal)
CPT/HCPCS: 36415; 80048

== ENCOUNTER 2019-07-14 11:11 | Outpatient (CLI) | payer OTHER ==
[2019-07-14 17:44] LABS: CALCIUM 9.5 mg/dL (8.5-10.3); CREATININE 0.7 mg/dL (0.4-1.0)
== END 2019-07-14 23:59 | disposition home or self-care (01) ==
LOC: LAB.WCP 11:11
PROVIDERS: ATTEND Internal Medicine Cardiovascular Disease
DX: I50.9 Heart failure, unspecified (principal)
CPT/HCPCS: 36415; 80048

== ENCOUNTER 2019-09-28 14:25 | Outpatient (CLI) | payer OTHER ==
[2019-09-28 20:03] LABS: CALCIUM 9.2 mg/dL (8.5-10.3); CREATININE 0.6 mg/dL (0.4-1.0)
== END 2019-09-28 14:26 | disposition home or self-care (01) ==
LOC: LAB.S 14:25
PROVIDERS: ATTEND Internal Medicine Cardiovascular Disease
DX: I42.8 Other cardiomyopathies (principal)
CPT/HCPCS: 36415; 80048; 83880

== ENCOUNTER 2019-10-25 13:38 | Outpatient (CLI) | payer OTHER ==
--- NOTE | 2019-10-26 14:49 | Mammography Report ---
BILATERAL DIGITAL SCREENING MAMMOGRAM 3D/2D: 10/25/2019 CLINICAL: Routine screening. Comparison is made to exam dated: 05/29/2011 mammogram - [facility]. The tissue of both breasts is heterogeneously dense. This may lower the sensitivity of mammography. No significant masses, calcifications, or other findings are seen in either breast. There has been no significant interval change. IMPRESSION: NEGATIVE There is no mammographic evidence of malignancy. A 1 year screening mammogram is recommended. This exam was interpreted at Station ID: [id number]. NOTE: For mammograms, a report in lay terms will be sent to the patient. Approximately 15% of breast malignancies will not be visualized mammographically. In the management of a palpable breast mass, a negative mammogram must not discourage biopsy of a clinically suspicious lesion. Electronically Signed By: Demetris Dominguez M.D., jr/wilfredo:10/25/2019 16:49:11 ACR BI-RADS Category 1: Negative 3341F PARENCHYMAL PATTERN: (D) - The breast(s) demonstrate(s) heterogeneously dense fibroglandular rosalinda sharpe. BI-RADS CATEGORY: (1) - 1 RECOMMENDATION: (ANNUAL) - Recommend routine annual screening mammography. [id number] 1 year screening LATERALITY: (B)
== END 2019-10-25 13:39 | disposition home or self-care (01) ==
LOC: DI 13:38
PROVIDERS: ATTEND Registered Nurse
DX: Z12.31 Encounter for screening mammogram for malignant neoplasm of breast (principal)
CPT/HCPCS: 77063; 77067

== ENCOUNTER 2020-01-31 11:14 | Outpatient (CLI) | payer OTHER ==
[2020-01-31 15:34] LABS: CALCIUM 9.1 mg/dL (8.5-10.3); CREATININE 0.7 mg/dL (0.4-1.0)
== END 2020-01-31 11:15 | disposition home or self-care (01) ==
LOC: LAB.S 11:14
PROVIDERS: ATTEND Internal Medicine Cardiovascular Disease
DX: I42.8 Other cardiomyopathies (principal)
CPT/HCPCS: 36415; 80048

== ENCOUNTER 2020-05-08 09:21 | Outpatient (CLI) | payer OTHER ==
[2020-05-08 17:00] LABS: CALCIUM 9.2 mg/dL (8.5-10.3); CREATININE 0.6 mg/dL (0.4-1.0)
== END 2020-05-08 09:22 | disposition home or self-care (01) ==
LOC: LAB.S 09:21
PROVIDERS: ATTEND Internal Medicine Cardiovascular Disease
DX: I42.8 Other cardiomyopathies (principal)
CPT/HCPCS: 36415; 80048

== ENCOUNTER 2021-05-13 12:24 | Outpatient (CLI) | payer OTHER ==
[2021-05-13 14:58] LABS: CALCIUM 9.2 mg/dL (8.5-10.3); CREATININE 0.7 mg/dL (0.4-1.0); POTASSIUM 3.8 mmol/L (3.5-5.0)
== END 2021-05-13 12:25 | disposition home or self-care (01) ==
LOC: LAB.S 12:24
PROVIDERS: ATTEND Internal Medicine Cardiovascular Disease
DX: I42.8 Other cardiomyopathies (principal)
CPT/HCPCS: 36415; 80048

== ENCOUNTER 2022-04-30 07:37 | Outpatient (CLI) | payer OTHER ==
[2022-04-30 14:55] LABS: BASOPHILS # (AUTO) 0.1 10^3/uL (0.0-0.1); BASOPHILS % (AUTO) 1.3 %; EOSINOPHILS # (AUTO) 0.1 10^3/uL (0.0-0.7); EOSINOPHILS % (AUTO) 2.4 %; HCT - HEMATOCRIT 36.9 % (37.0-47.0); HGB - HEMOGLOBIN 11.7 g/dL (12.0-16.0); LYMPHOCYTES # (AUTO) 1.3 10^3/uL (1.5-3.5); LYMPHOCYTES % (AUTO) 28.3 %; MEAN CORPUSCULAR HEMOGLOBIN 30.8 pg (27.0-31.0); MEAN CORPUSCULAR HGB CONC 31.7 g/dL (32.0-36.0); MEAN CORPUSCULAR VOLUME 97.1 fL (81.0-99.0); MEAN PLATELET VOLUME 10.9 fL (7.9-10.8); MONOCYTES # (AUTO) 0.4 10^3/uL (0.0-1.0); MONOCYTES % (AUTO) 9.3 %; NEUTROPHILS # (AUTO) 2.7 10^3/uL (1.5-6.6); NEUTROPHILS % (AUTO) 58.5 %; PLT - PLATELET COUNT 255 10^3/uL (130-450); RED CELL DISTRIBUTION WIDTH 12.9 % (12.0-15.0); WHITE BLOOD COUNT 4.6 x10^3/uL (4.8-10.8)
[2022-04-30 15:22] LABS: ALBUMIN/GLOBULIN RATIO 1.6 (1.0-2.2); ALKALINE PHOSPHATASE 43 IU/L (42-121); ALT ALANINE AMINOTRANSFERASE 16 IU/L (10-60); AST ASPARTATE AMINOTRANSFERASE 20 IU/L (10-42); BILIRUBIN,TOTAL 0.9 mg/dL (0.2-1.0); BUN - BLOOD UREA NITROGEN 13 mg/dL (6-20); CALCIUM 8.8 mg/dL (8.5-10.3); CARBON DIOXIDE - CO2 26 mmol/L (21-32); CHLORIDE 101 mmol/L (101-111); CHOL/HDL RATIO 2.2 (<4.4); CHOLESTEROL 151 mg/dL; CREATININE 0.7 mg/dL (0.4-1.0); GFR - MDRD 88 (>89); GLUCOSE 90 mg/dL (70-100); HDL CHOLESTEROL 69 mg/dL; LDL CHOLESTEROL,CALCULATED 74 mg/dL; LDL/HDL RATIO 1.1 (<4.4); POTASSIUM 4.1 mmol/L (3.5-5.0); SODIUM 137 mmol/L (135-145); TOTAL PROTEIN 6.5 g/dL (6.7-8.2); TRIGLYCERIDES 40 mg/dL; VLDL CHOLESTEROL 8 mg/dL
[2022-04-30 15:29] LABS: THYROID STIMULATING HORMONE 1.94 uIU/mL (0.34-5.60)
== END 2022-04-30 07:38 | disposition home or self-care (01) ==
LOC: LAB.S 07:37
PROVIDERS: ATTEND Registered Nurse
DX: I50.9 Heart failure, unspecified (principal); J45.909 Unspecified asthma, uncomplicated; Z79.899 Other long term (current) drug therapy; Z13.220 Encounter for screening for lipoid disorders
CPT/HCPCS: 36415; 80053; 80061; 83721; 84443; 85025

== ENCOUNTER 2022-05-13 07:45 | Outpatient (CLI) | payer OTHER ==
--- NOTE | 2022-05-13 11:37 | Mammography Report ---
BILATERAL DIGITAL SCREENING MAMMOGRAM 3D/2D: 05/13/2022 CLINICAL: Routine screening. Comparison is made to exams dated: 10/25/2019 mammogram and 05/29/2011 mammogram - [facility]. Both breasts are heterogeneously dense, which may obscure small masses (category c / 51-75% glandular tissue). There is a possible new 0.8 cm oval asymmetry in the left breast middle depth superior region seen on the mediolateral oblique view only 10 cm from the nipple. No other significant masses, calcifications, or other findings are seen in either breast. IMPRESSION: INCOMPLETE: NEEDS ADDITIONAL IMAGING EVALUATION The possible new 0.8 cm oval asymmetry in the left breast is indeterminate. Additional views with po ssible ultrasound are recommended. Based on the Tyrer Cuzick model (a risk assessment model) the patients lifetime risk is 12.4% and he r 10 year risk is 3.1%. According to the ACR, ACS, and NCCN guidelines, an annual breast MRI exam chon ng with mammogram is recommended if the patients lifetime risk is 20% or greater. This exam was interpreted at Station ID: [id number]. NOTE: For mammograms, a report in lay terms will be sent to the patient. Approximately 15% of breast malignancies will not be visualized mammographically. In the management of a palpable breast mass, a negative mammogram must not discourage biopsy of a clinically suspicious lesion. Electronically Signed By: Jose David Phillips M.D. aty/:05/13/2022 09:03:19 ACR BI-RADS Category 0: Incomplete 3340F PARENCHYMAL PATTERN: (D) - The breast(s) demonstrate(s) heterogeneously dense fibroglandular parlennyy dell. BI-RADS CATEGORY: (0) - 0 Mammo and [place] [id number] Immediate follow-up LATERALITY: (L)
== END 2022-05-13 07:46 | disposition home or self-care (01) ==
LOC: DI.S 07:45
DX: Z12.31 Encounter for screening mammogram for malignant neoplasm of breast (principal); R92.8 Other abnormal and inconclusive findings on diagnostic imaging of breast

== ENCOUNTER 2022-05-19 15:07 | Outpatient (CLI) | payer OTHER ==
--- NOTE | 2022-05-19 17:04 | DEXA Report ---
PROCEDURE: Dexa Spine and/or Hip INDICATIONS: FAM HIST OF OSTEOPOROSIS TECHNIQUE: Dual energy x-ray absorptiometry (DXA) was performed on a [employer]. Regions measur ed are the AP Spine, femoral neck, and if needed forearm. COMPARISON: None. FINDINGS: Lumbar Spine: Bone Mineral Density 0.94 g/cm/cm,T score -2, Left Femoral Neck: Bone Mineral Density 0.78 g/cm/cm, T score -1.9, Left Hip: Bone Mineral Density 0.76 g/cm/cm,T score -1.9, (T score greater or equal to -1.0: NORMAL) (T score from -1.1 to -2.4: OSTEOPENIA) (T score less than or equal to -2.5 to: OSTEOPOROSIS) Impression: Osteopenia. Elevated fracture risk. Patients with diagnosis of osteoporosis or osteopenia should have regular bone mineral density assess ment. For those eligible for Medicare, routine testing is allowed once every 2 years. Testing frequ ency can be increased for patients who have rapidly progressing disease or for those who are receivin g medical therapy to restore bone mass. Reviewed by: Jonathan Overton MD on 05/19/2022 5:03 PM PST Approved by: Jonathan Overton MD on 05/19/2022 5:03 PM PST Station ID: [id number]
== END 2022-05-19 15:08 | disposition home or self-care (01) ==
LOC: DI 15:07
PROVIDERS: ATTEND Registered Nurse
DX: M85.80 Other specified disorders of bone density and structure, unspecified site (principal); Z82.62 Family history of osteoporosis

== ENCOUNTER 2022-06-02 12:25 | Outpatient (CLI) | payer OTHER ==
--- NOTE | 2022-06-03 14:10 | Mammography Report ---
UNILATERAL LEFT DIGITAL DIAGNOSTIC MAMMOGRAM 3D/2D WITH SPOT COMPRESSION: 06/02/2022 CLINICAL: Patient returns today to evaluate an asymmetry in the left breast. Comparison is made to exams dated: 05/13/2022 mammogram, 10/25/2019 mammogram, and 05/29/2011 mammogram - [facility]. The left breast is heterogeneously dense, which may obscure small masses (category c / 51-75% glandul ar tissue). The possible 0.8 cm oval asymmetry in the left breast middle depth superior region seen on the mediol ateral oblique view only 10 cm from the nipple is no longer seen and is consistent with fibroglandula r tissue. This is not seen in additional views. No other significant masses or calcifications are seen in the breast. IMPRESSION: BENIGN There is no mammographic evidence of malignancy. A 1 year screening mammogram is recommended. Based on the Tyrer Cuzick model (a risk assessment model) the patients lifetime risk is 12.4% and he r 10 year risk is 3.1%. According to the ACR, ACS, and NCCN guidelines, an annual breast MRI exam chon ng with mammogram is recommended if the patients lifetime risk is 20% or greater. This exam was interpreted at Station ID: [id number]. NOTE: For mammograms, a report in lay terms will be sent to the patient. Approximately 15% of breast malignancies will not be visualized mammographically. In the management of a palpable breast mass, a negative mammogram must not discourage biopsy of a clinically suspicious lesion. Electronically Signed By: Demetris Dominguez M.D., jr/wilfredo:06/02/2022 13:56:31 ACR BI-RADS Category 2: Benign Finding(s) 3342F PARENCHYMAL PATTERN: (D) - The breast(s) demonstrate(s) heterogeneously dense fibroglandular parlennyy ma. BI-RADS CATEGORY: (2) - 2 Mammogram [id number] 1 year screening LATERALITY: (B)
== END 2022-06-02 12:26 | disposition home or self-care (01) ==
LOC: DI 12:25
PROVIDERS: ATTEND Registered Nurse
DX: R92.8 Other abnormal and inconclusive findings on diagnostic imaging of breast (principal)

== ENCOUNTER 2023-01-25 13:05 | Outpatient (CLI) | payer OTHER ==
[2023-01-25 21:04] LABS: CREATININE 0.7 mg/dL (0.6-1.3); POTASSIUM 3.8 mmol/L (3.5-4.5)
== END 2023-01-25 13:06 | disposition home or self-care (01) ==
LOC: LAB.S 13:05
PROVIDERS: ATTEND Internal Medicine Cardiovascular Disease
DX: I42.8 Other cardiomyopathies (principal)
CPT/HCPCS: 36415; 80048

== ENCOUNTER 2023-06-09 10:51 | Outpatient (CLI) | payer OTHER ==
--- NOTE | 2023-06-10 08:34 | Mammography Report ---
BILATERAL DIGITAL SCREENING MAMMOGRAM 3D/2D: 06/09/2023 CLINICAL: Routine screening. Comparison is made to exams dated: 06/02/2022 mammogram, 05/13/2022 mammogram, 10/25/2019 mammogram, and 05/29/2011 mammogram - [facility]. There are scattered areas of fibroglandular density in both breasts (category b / 25%-50% glandular t issue). No significant masses, calcifications, or other findings are seen in either breast. There has been no significant interval change. IMPRESSION: NEGATIVE There is no mammographic evidence of malignancy. A 1 year screening mammogram is recommended. Based on the Tyrer Cuzick model (a risk assessment model) the patient's lifetime risk is 8.2% and her 10 year risk is 2.1%. According to the ACR, ACS, and NCCN guidelines, an annual breast MRI exam layla g with mammogram is recommended if the patient's lifetime risk is 20% or greater. This exam was interpreted at Station ID: [id number]. NOTE: For mammograms, a report in lay terms will be sent to the patient. Approximately 15% of breast malignancies will not be visualized mammographically. In the management of a palpable breast mass, a negative mammogram must not discourage biopsy of a clinically suspicious lesion. Electronically Signed By: Anshul burgess/wilfredo:06/09/2023 21:02:20 ACR BI-RADS Category 1: Negative 3341F PARENCHYMAL PATTERN: (A) - The breast(s) demonstrate(s) scattered fibroglandular densities. BI-RADS CATEGORY: (1) - 1 RECOMMENDATION: (ANNUAL) - Recommend routine annual screening mammography. [id number] 1 year screening LATERALITY: (B)
== END 2023-06-09 10:52 | disposition home or self-care (01) ==
LOC: DI.S 10:51
PROVIDERS: ATTEND Registered Nurse
DX: Z12.31 Encounter for screening mammogram for malignant neoplasm of breast (principal); R92.323 Mammographic fibroglandular density, bilateral breasts